=== PATIENT | male | born 1975 | race African-American/Black ===

== ENCOUNTER 2017-05-18 06:43 | Emergency (ER) | payer MEDICAID ==
[~2017-05-18] VITALS: Ht 175.3 cm; Wt 70.3 kg
--- NOTE | 2017-05-18 06:57 | NUR ---
41 YO MALE BB SELF. PT IS ALERT X 3, STATES HE'S BEEN HEARING VOICES THAT ARE TELLING HIM TO WALK INTO TRAFFIC. PT AMBULATED TO ER BED, SKIN WARM AND DRY, RR EVEN AND UNLABORED. PT HE HAS NOT BEEN TAKING HIS MEDICATIONS SEROQUEL AND VISTORIL, DOES NOT RECALL DOSAGES. AWAITING ORDERS FROM PROVIDER, WILL CONTINUE TO MONITOR
--- NOTE | 2017-05-18 06:58 | NUR ---
PT CLOTHS AND DANGEROUS OBJECTS REMOVED FROM ROOM. PT CHANGED INTO HOSPITAL GOWN. AWAITING ORDERS FROM PROVIDER, WILL CONTINUE TO MONITOR
[2017-05-18] MEDS ORDERED: hydrOXYzine 10 MG TABLET PO ONE (07:00)
[2017-05-18] MEDS ORDERED: QUETIAPINE FUMARATE 25 MG TABLET PO SCH (07:00)
--- NOTE | 2017-05-18 07:30 | NUR ---
Patient is resting comfortably in bed. Refuses to give urine sample at this time. Ample amount of PO fluids has already been provided per request.
[2017-05-18 07:34] LABS: BASOPHILS # (AUTO) 0.1 /CMM (0.0-0.2); BASOPHILS % (AUTO) 1.2 % (0.0-2.0); EOSINOPHILS # (AUTO) 0.2 /CMM (0.0-0.7); EOSINOPHILS % (AUTO) 3.3 % (0.0-6.0); HEMATOCRIT 40 % (39-51); HEMOGLOBIN 12.9 g/dL (13.5-17.5); LYMPHOCYTES # (AUTO) 1.3 /CMM (0.8-4.8); LYMPHOCYTES % (AUTO) 26.1 % (20.0-44.0); MEAN CORPUSCULAR HEMOGLOBIN 28 PG (26.0-33.0); MEAN CORPUSCULAR HGB CONC 32 g/dl (31.0-36.0); MEAN CORPUSCULAR VOLUME 87 fL (80-96); MONOCYTES # (AUTO) 0.4 /CMM (0.1-1.30); MONOCYTES % (AUTO) 8.5 % (2.0-12.0); NEUTROPHILS % (AUTO) 60.9 % (43.0-81.0); PLATELET COUNT (AUTO) 240 /CMM (150-450); WHITE BLOOD COUNT (AUTO) 4.9 K/uL (4.3-11.0)
[2017-05-18 07:44] LABS: CALCIUM, SERUM 9.1 mg/dL (8.5-10.1); CARBON DIOXIDE 31 mmol/L (21-32); CHLORIDE 105 mmol/L (98-107); CREATININE 0.9 mg/dL (0.6-1.3); GLUCOSE 106 mg/dL (74-106); POTASSIUM 3.1 mmol/L (3.5-5.1); SODIUM SERUM 145 mmol/L (136-145); UREA NITROGEN, BLOOD 16 mg/dL (7-18)
[2017-05-18 07:48] LABS: ALANINE AMINOTRANSFERASE 49 U/L (12-78); ALBUMIN 3.8 g/dL (3.4-5.0); ALCOHOL, BLOOD < 3 mg/dL (0-0); ALKALINE PHOSPHATASE 81 U/L (46-116); ASPARTATE AMINOTRANSFERASE 34 U/L (15-37); BILIRUBIN,DIRECT 0.1 mg/dL (0.0-0.2); BILIRUBIN,TOTAL 0.4 mg/dL (0.2-1.0); TOTAL PROTEIN, SERUM 7.2 g/dL (6.4-8.2)
[2017-05-18 07:49] LABS: SALICYLATE 1.3 mg/dL (2.8-20.0)
[2017-05-18 07:50] LABS: ACETAMINOPHEN 0 ug/ml (10-30)
--- NOTE | 2017-05-18 08:39 | NUR ---
[facility] CALL[facility] [phone] FOR [facility]. ETA ~ 60 MIN OR LESS
[2017-05-18 11:15] VITALS: BP 106/75
[2017-05-18 11:37] LABS: APPEARANCE,URINE Clear (CLEAR); BILIRUBIN,URINE Negative (NEGATIVE); BLOOD, URINE Negative Ery/uL (NEGATIVE); COLOR,URINE Other (YELLOW); KETONES,URINE Negative (NEGATIVE); LEUKOCYTE ESTERASE ,URINE Negative (NEGATIVE); NITRITE, URINE Negative (NEGATIVE); PROTEIN,URINE Negative (NEGATIVE); UGLUCOSE Negative (NEGATIVE); UROBILINOGEN,URINE 0.2 EU/dL (0.2)
--- NOTE | 2017-05-18 12:04 | NUR ---
CALLED [facility] FOR [facility] ETA 7520 TRIP#[id number]
--- NOTE | 2017-05-18 12:41 | NUR ---
REPORT GIVEN TO [facility] STAFF FOR [facility].
== END 2017-05-18 12:58 | disposition home or self-care (01) ==
LOC: ER 06:43
DX: R45.851 Suicidal ideations (principal); F31.9 Bipolar disorder, unspecified
CPT/HCPCS: 36415; 80048; 80076; 80305; 80329; 81001; 85025; 99285; A4606; G0480 ×2; Q0177; Z7610; 81000-TC